=== PATIENT | male | born 1965 ===

== ENCOUNTER 2019-05-20 14:20 | Outpatient (REF) | payer BC, SELFPAY ==
[2019-05-20 22:03] LABS: HCT 45.3 % (40.0-50.0); HGB 15.7 g/dL (13.5-17.5); Mean Corp. HGB Concentration 34.7 g/dL (32.0-36.0); Mean Corpuscular Hemoglobin 30.5 pg (27.0-33.0); Mean Platelet Volume 11.2 fL (8.0-11.0); Platelet Count 346 x1000/uL (130-400); RBC 5.15 m/cumm (4.50-6.00); White Blood Cell Count 8.52 k/cumm (4.4-10.8)
[2019-05-20 22:23] LABS: ALT 49 U/L (16-63); AST 24 U/L (15-37); Albumin 4.3 g/dL (3.4-5.0); Alkaline Phosphatase 95 U/L (46-116); Anion Gap 10.5 mmol/L (3-11); BUN 15 mg/dL (7-18); Bilirubin, Total 0.7 mg/dL (0.2-1.0); CO2 24.5 mmol/L (21.0-32.0); Calcium 9.3 mg/dL (8.5-10.1); Calculated LDL 139 mg/dL (<100); Chloride 105 mmol/L (98-107); Cholesterol 212 mg/dL (<200); Glucose 74 mg/dL (74-106); HDL Cholesterol 49 mg/dL (40-60); Potassium 4.3 mmol/L (3.5-5.1); Sodium 140 mmol/L (136-145); TSH (W/Ref FT4) 2.29 uIU/mL (0.36-3.74); Total Protein 7.6 g/dL (6.4-8.2); Triglyceride 124 mg/dL (<150)
[2019-05-22 09:13] LABS: PSA, Screening 1.2 ng/mL (0.0-3.5)
== END 2019-05-20 14:40 ==
LOC: NCHCN 14:20
PROVIDERS: PCP Family Medicine; Visit Provider Family Medicine
DX: Z00.00 Encounter for general adult medical examination without abnormal findings (principal); R53.83 Other fatigue; K76.0 Fatty (change of) liver, not elsewhere classified; Z12.5 Encounter for screening for malignant neoplasm of prostate
CPT/HCPCS: 80053; 80061; 84153; 85027; 84443

== ENCOUNTER 2019-10-05 08:12 | Outpatient (CLI) | payer BC, SELFPAY ==
[2019-10-07 07:21] LABS: COVID-19 RT-PCR Result NEGATIVE (Negative)
== END 2019-10-05 08:32 ==
PROVIDERS: PCP Family Medicine; Visit Provider Family Medicine
DX: Z11.59 Encounter for screening for other viral diseases (principal)
CPT/HCPCS: U0003

== ENCOUNTER 2021-08-04 18:44 | Outpatient (REF) | payer BC, SELFPAY ==
[2021-08-04 21:52] LABS: HCT 45.5 % (40.0-50.0); HGB 15.8 g/dL (13.5-17.5); MCH 30.6 pg (27.0-33.0); MCHC 34.7 % (32.0-36.0); MCV 88.2 fL (80-95); MPV 11.5 fL (8.0-11.0); Platelet Count 337 10^3/uL (130-400); RBC 5.16 10^6/uL (4.36-5.78); RDW 12.3 % (11.8-14.1); RDW-SD 40.4 fL; WBC 10.48 10^3/uL (4.4-10.8)
[2021-08-04 22:50] LABS: ALT 47 U/L (16-63); AST 23 U/L (15-37); Albumin 4.1 g/dL (3.4-5.0); Alkaline Phosphatase 105 U/L (46-116); Anion Gap 10.3 mmol/L (3-11); BUN 15 mg/dL (7-18); Bilirubin, Total 0.6 mg/dL (0.2-1.0); CO2 26.7 mmol/L (21.0-32.0); Calcium 8.9 mg/dL (8.5-10.1); Calculated LDL 114 mg/dL (<100); Chloride 104 mmol/L (98-107); Cholesterol 221 mg/dL (<200); Glucose 103 mg/dL (74-106); HDL Cholesterol 47 mg/dL (40-60); Potassium 4.2 mmol/L (3.5-5.1); Sodium 141 mmol/L (136-145); Total Protein 7.6 g/dL (6.4-8.2); Triglyceride 301 mg/dL (<150)
[2021-08-07 06:28] LABS: Vitamin D 25 Total 46.1 ng/mL (30-100)
== END 2021-08-04 18:45 | disposition home or self-care (01) ==
LOC: NCHCN 18:44
PROVIDERS: PCP Family Medicine; Visit Provider Family Medicine
DX: Z00.00 Encounter for general adult medical examination without abnormal findings (principal); R53.83 Other fatigue; K76.0 Fatty (change of) liver, not elsewhere classified; Z12.5 Encounter for screening for malignant neoplasm of prostate; Z13.220 Encounter for screening for lipoid disorders
CPT/HCPCS: 80053; 80061; 82306; 84153; 85027

== ENCOUNTER 2021-11-09 17:17 | Outpatient (REF) | payer BC, SELFPAY ==
[2021-11-09 14:33] LABS: HCT 44.9 % (40.0-50.0); HGB 15.6 g/dL (13.5-17.5); MCH 31.8 pg (27.0-33.0); MCHC 34.7 % (32.0-36.0); MCV 91 fL (80-95); MPV 10.8 fL (8.0-11.0); Platelet Count 292 10^3/uL (130-400); RBC 4.91 10^6/uL (4.36-5.78); RDW 12.6 % (11.8-14.1); RDW-SD 42.2 fL; WBC 8.04 10^3/uL (4.4-10.8)
[2021-11-09 14:48] LABS: ALT 34 U/L (16-63); AST 21 U/L (15-37); Albumin 3.9 g/dL (3.4-5.0); Alkaline Phosphatase 78 U/L (46-116); Anion Gap 7.2 mmol/L (3-11); BUN 15 mg/dL (7-18); Bilirubin, Total 0.7 mg/dL (0.2-1.0); CO2 28.8 mmol/L (21.0-32.0); Calcium 9.6 mg/dL (8.5-10.1); Calculated LDL 177 mg/dL (<100); Chloride 107 mmol/L (98-107); Cholesterol 245 mg/dL (<200); Glucose 101 mg/dL (74-106); HDL Cholesterol 47 mg/dL (40-60); Potassium 4.7 mmol/L (3.5-5.1); Sodium 143 mmol/L (136-145); Total Protein 7.6 g/dL (6.4-8.2); Triglyceride 106 mg/dL (<150)
== END 2021-11-09 17:18 | disposition home or self-care (01) ==
LOC: NCHCN 17:17
PROVIDERS: PCP Family Medicine; Visit Provider Family Medicine
DX: R53.83 Other fatigue (principal); K76.0 Fatty (change of) liver, not elsewhere classified; Z00.00 Encounter for general adult medical examination without abnormal findings
CPT/HCPCS: 80053; 80061; 85027

== ENCOUNTER 2022-03-23 12:41 | Outpatient (REF) | payer BC, SELFPAY ==
[2022-03-23 14:43] LABS: HCT 45.7 % (40.0-50.0); HGB 15.5 g/dL (13.5-17.5); MCH 31.2 pg (27.0-33.0); MCHC 33.9 % (32.0-36.0); MCV 92 fL (80-95); MPV 11.2 fL (8.0-11.0); Platelet Count 310 10^3/uL (130-400); RBC 4.97 10^6/uL (4.36-5.78); RDW 12.1 % (11.8-14.1); RDW-SD 40.6 fL; WBC 7.65 10^3/uL (4.4-10.8)
[2022-03-23 14:57] LABS: ALT 57 U/L (16-63); AST 24 U/L (15-37); Albumin 4.3 g/dL (3.4-5.0); Alkaline Phosphatase 100 U/L (46-116); Anion Gap 5.6 mmol/L (3-11); BUN 13 mg/dL (7-18); Bilirubin, Total 0.8 mg/dL (0.2-1.0); CO2 31.4 mmol/L (21.0-32.0); Calcium 9.2 mg/dL (8.5-10.1); Calculated LDL 85 mg/dL (<100); Chloride 104 mmol/L (98-107); Cholesterol 148 mg/dL (<200); Estimated GFR 87.78 (mL/min/1.73m2); Glucose 103 mg/dL (74-106); HDL Cholesterol 51 mg/dL (40-60); Sodium 141 mmol/L (136-145); Total Protein 7.5 g/dL (6.4-8.2); Triglyceride 64 mg/dL (<150)
== END 2022-03-23 12:42 | disposition home or self-care (01) ==
LOC: NCHCN 12:41
PROVIDERS: PCP Family Medicine; Visit Provider Family Medicine
DX: R53.83 Other fatigue (principal); K76.0 Fatty (change of) liver, not elsewhere classified; I77.6 Arteritis, unspecified; Z00.00 Encounter for general adult medical examination without abnormal findings
CPT/HCPCS: 80053; 80061; 85027

== ENCOUNTER 2023-08-01 08:40 | Outpatient (REF) | payer BC, SELFPAY ==
[2023-08-01 16:20] LABS: ALT 48 U/L (16-63); AST 22 U/L (15-37); Albumin 4.1 g/dL (3.4-5.0); Alkaline Phosphatase 95 U/L (46-116); Anion Gap 8.8 mmol/L (3-11); BUN 17 mg/dL (7-18); Bilirubin, Total 1.2 mg/dL (0.2-1.0); CO2 28.2 mmol/L (21.0-32.0); Calcium 9.4 mg/dL (8.5-10.1); Calculated LDL 79 mg/dL (<100); Chloride 106 mmol/L (98-107); Cholesterol 142 mg/dL (<200); Estimated GFR 87.24 (mL/min/1.73m2); Glucose 93 mg/dL (74-106); HDL Cholesterol 56 mg/dL (40-60); Sodium 143 mmol/L (136-145); Total Protein 7.2 g/dL (6.4-8.2); Triglyceride 39 mg/dL (<150)
[2023-08-01 16:40] LABS: Vitamin D 25 Total 34.4 ng/mL (30-100)
== END 2023-08-01 08:41 | disposition home or self-care (01) ==
LOC: NCHCN 08:40
PROVIDERS: PCP Family Medicine; Visit Provider Family Medicine
DX: Z00.00 Encounter for general adult medical examination without abnormal findings (principal)
CPT/HCPCS: 80053; 80061; 82306